=== PATIENT | female | born 1990 | race Caucasian/White ===

== ENCOUNTER 2017-06-22 19:35 | Emergency (ER) | payer OTHER | END 2017-06-22 21:18 | disposition home or self-care (01) | LOC: E/R 21:18 | DX: S63.501A Unspecified sprain of right wrist, initial encounter (principal); X58.XXXA Exposure to other specified factors, initial encounter; Y92.9 Unspecified place or not applicable | CPT/HCPCS: 29125; 73110-LT; 99283-25 ==

== ENCOUNTER 2017-10-10 16:45 | Emergency (ER) | payer OTHER ==
[2017-10-10] MEDS: LORAZEPAM 2 MG INJ IV ×2 (17:59→21:14)
[2017-10-10] MEDS: ONDANSETRON 4 MG INJ IV (18:17)
[2017-10-10] MEDS: SOD CHLORIDE 0.9% 1,000 ML IV (18:17)
[2017-10-10 18:18] LABS: ADD MAN DIFF? NO
[2017-10-10] MEDS: HYDROmorphONE 1 MG/ML SYG IV (18:18)
[2017-10-10 18:23] LABS: BASOPHIL # 0.1 10^3/ul (0.0-0.1); BASOPHILS % 0.6 % (0.0-2.0); EOSINOPHILS % 0.2 % (0.0-7.0); HEMATOCRIT 42.9 % (37.0-47.0); HEMOGLOBIN 14.2 g/dl (12.0-16.0); LYMPHOCYTES # 2.3 10^3/ul (0.8-2.9); LYMPHOCYTES % 22.8 % (15.0-51.0); MEAN CORPUSCULAR HEMOGLOBIN 29.4 pg (29.0-33.0); MEAN CORPUSCULAR HGB CONC 33.1 g/dl (32.0-37.0); MEAN CORPUSCULAR VOLUME 88.8 fl (82.0-101.0); MEAN PLATELET VOLUME 8.7 fl (7.4-10.4); MONOCYTE # 0.5 10^3/ul (0.3-0.9); MONOCYTES % 4.7 % (0.0-11.0); NEUTROPHIL # 7.2 10^3/ul (1.6-7.5); NEUTROPHILS % 71.4 % (39.0-77.0); PLATELET COUNT 249 10^3/UL (140-415); RED BLOOD COUNT 4.83 10^6/ul (4.20-5.40); RED CELL DISTRIBUTION WIDTH 12.1 % (11.5-14.5)
[2017-10-10 18:44] LABS: ALANINE AMINOTRANSFERASE 28 IU/L (13-69); ALBUMIN 5.1 g/dl (3.3-4.9); ALBUMIN/GLOBULIN RATIO 1.24; ALKALINE PHOSPHATASE 101 IU/L (42-121); ANION GAP 18 (8-16); ASPARTATE AMINO TRANSFERASE 41 IU/L (15-46); BILIRUBIN,INDIRECT 1.3 mg/dl (0-1.1); BILIRUBIN,TOTAL 1.3 mg/dl (0.2-1.3); BLOOD UREA NITROGEN 6 mg/dl (7-20); CALCIUM 10.4 mg/dl (8.4-10.2); CARBON DIOXIDE 21 mmol/L (21-31); CHLORIDE 106 mmol/L (97-110); CREATININE 0.56 mg/dl (0.44-1.00); GLUCOSE 90 mg/dl (70-220); LIPASE 58 U/L (23-300); POTASSIUM 4.3 mmol/L (3.5-5.1); SODIUM 141 mmol/L (135-144); TOTAL PROTEIN 9.2 g/dl (6.1-8.1)
== END 2017-10-10 23:31 | disposition home or self-care (01) ==
LOC: E/R 16:45
DX: F10.230 Alcohol dependence with withdrawal, uncomplicated (principal); R10.11 Right upper quadrant pain; I10 Essential (primary) hypertension
CPT/HCPCS: 36415; 76705; 80053; 83690; 84703; 85025; 96374; 96375; 96376; 99285-25

== ENCOUNTER 2017-10-23 15:34 | Emergency (ER) | payer OTHER ==
[2017-10-23 16:14] LABS: ADD MAN DIFF? NO
[2017-10-23] MEDS: LORAZEPAM 2 MG INJ IV (16:14)
[2017-10-23] MEDS: SOD CHLORIDE 0.9% 1,000 ML IV (16:15)
[2017-10-23 16:19] LABS: BASOPHIL # 0.1 10^3/ul (0.0-0.1); BASOPHILS % 0.7 % (0.0-2.0); EOSINOPHILS % 0.3 % (0.0-7.0); HEMATOCRIT 38.1 % (37.0-47.0); HEMOGLOBIN 12.6 g/dl (12.0-16.0); LYMPHOCYTES # 2.6 10^3/ul (0.8-2.9); LYMPHOCYTES % 34.3 % (15.0-51.0); MEAN CORPUSCULAR HEMOGLOBIN 29.1 pg (29.0-33.0); MEAN CORPUSCULAR HGB CONC 33.1 g/dl (32.0-37.0); MEAN PLATELET VOLUME 8.4 fl (7.4-10.4); MONOCYTE # 0.4 10^3/ul (0.3-0.9); NEUTROPHIL # 4.5 10^3/ul (1.6-7.5); NEUTROPHILS % 59.4 % (39.0-77.0); PLATELET COUNT 300 10^3/UL (140-415); RED BLOOD COUNT 4.33 10^6/ul (4.20-5.40); RED CELL DISTRIBUTION WIDTH 11.9 % (11.5-14.5)
[2017-10-23 16:19] LABS: WHITE BLOOD COUNT 7.5 10^3/ul (4.8-10.8)
[2017-10-23 16:36] LABS: ANION GAP 14 (8-16); BLOOD UREA NITROGEN 4 mg/dl (7-20); CALCIUM 9.3 mg/dl (8.4-10.2); CARBON DIOXIDE 23 mmol/L (21-31); CHLORIDE 106 mmol/L (97-110); CREATININE 0.52 mg/dl (0.44-1.00); GLUCOSE 103 mg/dl (70-220); POTASSIUM 3.3 mmol/L (3.5-5.1); SODIUM 140 mmol/L (135-144)
[2017-10-23 16:48] LABS: TROPONIN-I < 0.012 ng/ml (0.000-0.120)
[2017-10-23 17:10] LABS: BARBITURATES NEGATIVE (NEGATIVE); BENZODIAZEPINES NEGATIVE (NEGATIVE); CANNABINOIDS NEGATIVE (NEGATIVE); OPIATES NEGATIVE (NEGATIVE)
[2017-10-23 17:11] LABS: COCAINE POSITIVE (NEGATIVE)
[2017-10-23 17:12] LABS: AMPHETAMINE/METHAMPHETAMINE POSITIVE (NEGATIVE)
== END 2017-10-23 18:38 | disposition home or self-care (01) ==
LOC: E/R 15:34
DX: R07.9 Chest pain, unspecified (principal); I10 Essential (primary) hypertension
CPT/HCPCS: 36415; 71045; 80048; 80307; 81025; 84484; 85025; 93005; 96374; 99285-25

== ENCOUNTER 2018-08-29 16:05 | Emergency (ER) | payer OTHER ==
[2018-08-29] MEDS: LORAZEPAM 0.5 MG TAB PO (19:49)
== END 2018-08-29 21:11 | disposition left against medical advice (07) ==
LOC: FTE 16:05
DX: R06.02 Shortness of breath (principal); I10 Essential (primary) hypertension
CPT/HCPCS: 81025; 93005; 99283-25